=== PATIENT | male | born 2000 | race Caucasian/White ===

== ENCOUNTER 2021-06-25 18:45 | Emergency (ER) | payer BC ==
[~2021-06-25] VITALS: Ht 172.7 cm; Wt 63.5 kg
[2021-06-25] MEDS ORDERED: AMOX1TAB5 PO (19:40)
== END 2021-06-25 19:42 | disposition home or self-care (01) ==
LOC: ER 18:45
DX: S91.332A Puncture wound without foreign body, left foot, initial encounter (principal); X58.XXXA Exposure to other specified factors, initial encounter; Y92.89 Other specified places as the place of occurrence of the external cause